=== PATIENT | female | born 1975 | race Caucasian/White ===

== ENCOUNTER 2018-06-06 11:15 | Inpatient (IN) | payer OTHER ==
[2018-06-06] MEDS ORDERED: OXYCODONE/ASPIRIN (4.88/325) TAB PO (13:30)
[2018-06-06] MEDS ORDERED: METHYLERGONOVINE 0.2 MG INJ IM (13:30)
[2018-06-06] MEDS ORDERED: IBUPROFEN 600 MG TAB PO (13:30)
[2018-06-06] MEDS ORDERED: LIDOCAINE 1% (MPF) 30 ML INJ INJ (13:30)
[2018-06-06] MEDS ORDERED: OXYTOCIN 30 UNITS/LR 500 ML IV ×3 (13:30)
[2018-06-06] MEDS ORDERED: CARBOPROST 250 MCG INJ IM (13:30)
[2018-06-06] MEDS ORDERED: MISOPROSTOL 200 MCG TAB PR (13:30)
[2018-06-06] MEDS ORDERED: BUTORPHANOL 2 MG INJ IV (13:30)
[2018-06-06] MEDS: LACTATED RINGER'S 1,000 ML IV ×3 (14:14→18:17)
[2018-06-06 14:28] LABS: ADD MAN DIFF? NO
[2018-06-06 14:31] LABS: WHITE BLOOD COUNT 21.9 10^3/ul (4.8-10.8)
[2018-06-06 14:31] LABS: BASOPHILS % 0.2 % (0.0-2.0); HEMATOCRIT 40.6 % (37.0-47.0); HEMOGLOBIN 13.7 g/dl (12.0-16.0); LYMPHOCYTES # 1.4 10^3/ul (0.8-2.9); LYMPHOCYTES % 6.5 % (15.0-51.0); MEAN CORPUSCULAR HEMOGLOBIN 32.5 pg (29.0-33.0); MEAN CORPUSCULAR HGB CONC 33.7 g/dl (32.0-37.0); MEAN CORPUSCULAR VOLUME 96.2 fl (82.0-101.0); MONOCYTE # 1.2 10^3/ul (0.3-0.9); MONOCYTES % 5.7 % (0.0-11.0); NEUTROPHILS % 86.6 % (39.0-77.0); PLATELET COUNT 309 10^3/UL (140-415); RED BLOOD COUNT 4.22 10^6/ul (4.20-5.40); RED CELL DISTRIBUTION WIDTH 13.5 % (11.5-14.5)
[2018-06-06] MEDS: AMPICILLIN 2 GM/NS (PMX) 100 ML IV (14:47)
[2018-06-06 14:50] LABS: INR 0.84; PROTIME 11.6 Sec (11.9-14.9); PT RATIO 0.9
[2018-06-06 14:51] LABS: PARTIAL THROMBOPLASTIN TIME 26.1 Sec (23.0-35.0)
[2018-06-06] MEDS ORDERED: DIPHENHYDRAMINE 50 MG INJ IV (15:00)
[2018-06-06] MEDS ORDERED: NALOXONE (0.4 MG/ML) INJ IV (15:00)
[2018-06-06] MEDS ORDERED: ONDANSETRON 4 MG INJ IV (15:00)
[2018-06-06 15:18] LABS: RAPID PLASMA REAGIN NONREACTIVE (NR)
[2018-06-06 15:19] LABS: HEPATITIS B SURFACE ANTIGEN NEGATIVE (NEGATIVE)
[2018-06-06] MEDS: AMPICILLIN 1 GM/NS (PMX) 50 ML IV ×2 (17:05→21:58)
[2018-06-06] MEDS ORDERED: LIDOCAINE 1% (MPF) 30 ML INJ (20:34)
[2018-06-06] MEDS: FENTAnyl 2MCG/ML-ROPIV 0.2% 100 ML BAG EPI (23:26)
[2018-06-07] MEDS ORDERED: MISOPROSTOL 200 MCG TAB PR (01:30)
[2018-06-07] MEDS ORDERED: CARBOPROST 250 MCG INJ IM (01:30)
[2018-06-07] MEDS ORDERED: OXYTOCIN 30 UNITS/LR 500 ML IV (01:30)
[2018-06-07] MEDS ORDERED: METHYLERGONOVINE 0.2 MG INJ IM (01:30)
[2018-06-07] MEDS: LACTATED RINGER'S 1,000 ML IV* (02:06)
[2018-06-07] MEDS: BENZOCAINE 20% 56 ML SPRAY TOP (05:55)
[2018-06-07] MEDS: LANOLIN 7 GM TUBE TOP (05:55)
[2018-06-07] MEDS: IBUPROFEN 600 MG TAB PO ×4 (05:55→23:50)
[2018-06-07] MEDS ORDERED: VALACYCLOVIR 500 MG TAB PO (09:00)
[2018-06-07] MEDS: VALACYCLOVIR 500 MG TAB PO (10:39)
[2018-06-08] MEDS: LACTATED RINGER'S 1,000 ML IV* ×2 (01:22→19:15)
[2018-06-08] MEDS: IBUPROFEN 600 MG TAB PO ×3 (05:45→18:05)
[2018-06-08 07:32] LABS: ADD MAN DIFF? NO
[2018-06-08 07:37] LABS: BASOPHIL # 0.1 10^3/ul (0.0-0.1); BASOPHILS % 0.4 % (0.0-2.0); EOSINOPHILS # 0.3 10^3/ul (0.0-0.5); EOSINOPHILS % 1.9 % (0.0-7.0); HEMOGLOBIN 10.3 g/dl (12.0-16.0); LYMPHOCYTES # 2.3 10^3/ul (0.8-2.9); LYMPHOCYTES % 14.6 % (15.0-51.0); MEAN CORPUSCULAR HEMOGLOBIN 32.6 pg (29.0-33.0); MEAN CORPUSCULAR HGB CONC 32.2 g/dl (32.0-37.0); MEAN CORPUSCULAR VOLUME 101.3 fl (82.0-101.0); MEAN PLATELET VOLUME 10.2 fl (7.4-10.4); MONOCYTE # 1.3 10^3/ul (0.3-0.9); MONOCYTES % 7.8 % (0.0-11.0); NEUTROPHIL # 11.9 10^3/ul (1.6-7.5); NEUTROPHILS % 74.5 % (39.0-77.0); PLATELET COUNT 220 10^3/UL (140-415); RED BLOOD COUNT 3.16 10^6/ul (4.20-5.40); RED CELL DISTRIBUTION WIDTH 14.5 % (11.5-14.5)
[2018-06-08] MEDS: VALACYCLOVIR 500 MG TAB PO (10:14)
== END 2018-06-09 00:10 | disposition home or self-care (01) | DRG 806 ==
LOC: OBT 11:15 → PP1 06-07 02:58 → L-D 11:15 → OBT 11:43 → L-D 11:35
PROVIDERS: Obstetrics & Gynecology
PROC: 10E0XZZ Delivery of Products of Conception, External Approach (ICD-10-PCS; principal; 2018-06-07)
PROC: 0HQ9XZZ Repair Perineum Skin, External Approach (ICD-10-PCS; 2018-06-07)
DX: O99.824 Streptococcus B carrier state complicating childbirth (principal); O69.81X0 Labor and delivery complicated by cord around neck, without compression, not applicable or unspecified; O70.0 First degree perineal laceration during delivery; O98.52 Other viral diseases complicating childbirth; B00.9 Herpesviral infection, unspecified; Z3A.39 39 weeks gestation of pregnancy; Z37.0 Single live birth
CPT/HCPCS: 62319; 85025; 85610; 85730; 86592; 86850; 86870; 86900; 86901; 87340